=== PATIENT | female | born 2000 | race Caucasian/White ===

== ENCOUNTER 2024-04-05 17:14 | Emergency (ER) | payer OTHER ==
[~2024-04-05] VITALS: Ht 160 cm; Wt 64.9 kg
[2024-04-05 17:16] VITALS: BP 125/97; PULSE 125; RESP 18; TEMP 98.3; O2SAT 100
[2024-04-05] MEDS: LORazepam 1 MG TAB PO ONE (17:48)
[2024-04-05] MEDS ORDERED: ATA25 PO (17:53)
[2024-04-05 18:15] VITALS: BP 121/81; PULSE 100; RESP 18; O2SAT 100
== END 2024-04-05 18:15 | disposition home or self-care (01) ==
LOC: MED 17:14
DX: F41.9 Anxiety disorder, unspecified (principal); Z79.899 Other long term (current) drug therapy
CPT/HCPCS: 99283